=== PATIENT | male | born 1960 | race Caucasian/White ===

== ENCOUNTER 2023-02-22 06:46 | Observation (INO) | payer OTHER, SELFPAY ==
[2023-02-22] VITALS (16 sets, daily range): BP systolic 165–199; BP diastolic 89–106; PULSE 79–101; RESP 10–20; TEMP 36.3–36.9; O2SAT 92–100; BMI 28.9
--- NOTE | ~2023-02-22 | CT_ITS ---
CT ANGIOGRAM NECK AND HEAD History: Right-sided weakness. Technique: Serial spiral axial images through the head and neck were obtained during arterial phase I V injection of 100 cc of Omnipaque 350. 3-D postprocessing and MIP images were then reconstructed on the remote workstation. Dose reduction technique was used on this scan by utilizing automated exposur e control and iterative reconstruction technique. The dose-length product (DLP) was 1298.13 mGy-cm. CTA neck findings: Bilateral vertebral arteries are patent. Left vertebral artery terminates as left PICA, normal variant. Bilateral common carotid, internal carotid, and external carotid arteries are patent. There is calcified plaque at the proximal right internal carotid artery without stenosis. The proximal right internal carotid artery demonstrates 0% stenosis relative to the normal distal artery lumen diameter. The proximal left internal carotid artery demonstrates 0% stenosis relative to the n ormal distal artery lumen diameter. CTA head findings: Basilar artery and posterior cerebral arteries are patent. Distal internal carotid arteries, middle cerebral arteries, and anterior cerebral arteries are patent. No large vessel occlu pete. No stenosis or aneurysm. Impression: No significant abnormality seen. Reviewed, dictated and finalized at location . Impression: No significant abnormality seen.
--- NOTE | ~2023-02-22 | MR_ITS ---
EXAMINATION: MR brain/brain stem wo con DATE: 02/22/2023 16:44 INDICATION: TIA TECHNIQUE: Magnetic resonance imaging (MRI) of the brain and brainstem was performed without intraven ous contrast. Sequences included sagittal and axial T1-weighted SE, axial diffusion-weighted FS EPI A SSET, axial T2*-weighted GRE, axial T2-weighted FLAIR Propeller, and axial T2-weighted Propeller. Pos tcontrast axial and coronal T1-weighted SE was obtained. Apparent diffusion coefficient (ADC) maps we re created. COMPARISON: CT brain and CTA brain carotid 02/22/2023. FINDINGS: No abnormal restricted diffusion to suggest acute ischemic infarct. No MRI evidence of hemorrhage or extra-axial collection. No suspicious foci of susceptibility to suggest prior intraparenchymal hemorr jairo. Moderate, patchy areas of subcortical and periventricular nonspecific white matter hyperintensi ties. Mild generalized parenchymal volume loss. The basilar cisterns are patent. Flow voids are prese rved. Mucosal thickening in the bilateral inferior frontal sinuses, the ethmoid air cells and bilater al maxillary sinuses. Globes and orbital contents are within normal limits. IMPRESSION: 1. No acute infarct. 2. White matter changes may represent chronic microvascular ischemic disease or demyelinating disease , depending on the clinical context. 3. Mucoperiosteal paranasal sinus disease. Reviewed, dictated and finalized at location K. IMPRESSION: 1. No acute infarct. 2. White matter changes may represent chronic microvascular ischemic disease or demyelinating disease, depending on the clinical context. 3. Mucoperiosteal paranasal sinus disease.
--- NOTE | ~2023-02-22 | CT_ITS ---
CT head without contrast Indication: CVA Technique: Serial scans were obtained through the brain without the administration of contrast. Dose reduction technique was used on this scan by utilizing automated exposure control and iterative recon struction technique. The dose-length product (DLP) was 681.00 mGy-cm. Findings: There is no evidence of intracranial hemorrhage, mass lesion, or acute infarct. The ventri cles and subarachnoid spaces are dilated, consistent with minimal atrophy. Low attenuation regions a re seen within the periventricular white matter bilaterally, likely representing changes from chronic microvascular ischemic disease. There is no evidence of edema, mass effect or midline shift. Bilate ral ethmoid sinus disease present. The remaining visualized paranasal sinuses and mastoid air cells a re clear. Impression: No intracranial hemorrhage, mass, or acute infarct. Atrophy and chronic white matter changes, as above. Case discussed with Dr. Mcgovern at 7:00 AM on 02/22/2023. Reviewed, dictated and finalized at [facility]. Impression: No intracranial hemorrhage, mass, or acute infarct. Atrophy and chronic white matter changes, as above. Case discussed with Dr. Mcgovern at 7:00 AM on 02/22/2023.
--- NOTE | ~2023-02-22 | XR_ITS ---
Portable chest x-ray Comparison: None Clinical History: CVA Findings: Lungs are clear, without focal consolidation or pleural effusion. Cardiomediastinal silho uette is unremarkable. Bones and soft tissues are unremarkable. Impression: Normal chest. Reviewed, dictated and finalized at location M. Impression: Normal chest.
--- NOTE | 2023-02-22 06:52 | ECG_ITS ---
Measurements Intervals [place] Rate: 80 P: 66 GA: 142 QRS: 46 QRSD: 88 T: 79 QT: 386 QTc: 446 Interpretive Statements SINUS RHYTHM BORDERLINE ST-T WAVE ABNORMALITY- HIGH LATERAL LEADS BORDERLINE ECG NO PREVIOUS ECG AVAILABLE FOR COMPARISON Electronically Signed On 02-22-2023 8:00:28 CDT by Tereso Molina D.O.
[2023-02-22 07:04] LABS: Glucose Point of Care 105 mg/dl (65-105)
[2023-02-22 07:12] LABS: Basophils Absolute Auto 0.1 K/mm3 (0.0-0.1); Basophils Percent Auto 0.7 % (0.2-1.2); Eosinophils Absolute Auto 0.7 K/mm3 (0-0.3); Eosinophils Percent Auto 10.4 % (0-4.4); Hematocrit 38.3 % (42.0-52.0); Hemoglobin 12.6 g/dL (14.0-18.0); Immature Granulocyte Absolute 0.01 K/mm3 (0.00-0.031); Immature Granulocyte Percent A 0.1 % (0-0.5); Lymphocytes Absolute Auto 0.88 K/mm3 (0.9-3.2); Lymphocytes Percent Auto 13.1 % (18.3-44.2); Mean Corpuscular HGB Conc 32.9 g/dl (32-36); Mean Corpuscular Hemoglobin 32.1 pg (26-34); Mean Corpuscular Volume 97.5 fl (80-100); Mean Platelet Volume 10.7 fl (7.4-10.4); Monocytes Absolute Auto 0.8 K/mm3 (0.1-0.6); Monocytes Percent Auto 12.5 % (2.6-8.5); Neutrophils Absolute Auto 4.3 K/mm3 (1.3-6.7); Neutrophils Percent Auto 63.2 % (45.5-73.1); Platelet Count Result 149 k/mm3 (150-375); Red Blood Count 3.93 M/mm3 (4.6-6.20); Red Cell Distribution Width 13.6 % (11.5-14.5); White Blood Count 6.7 K/mm3 (4.5-10.0)
--- NOTE | 2023-02-22 07:12 | ED.NEUROSD ---
HPI - Neuro Symptoms/Deficit General Chief Complaint: Suspected CVA Stated Complaint: stroke symptoms Time Seen by Provider: 02/22/23 07:00 History of Present Illness HPI Narrative: Patient with history of prior TIA on Plavix presents for right-sided weakness, he states that he went to bed around 930 last night and felt completely fine, and then throughout the night, kept waking up, because he was feeling weird. 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 He has had similar issues in the past which resolved. Has never had TPA before. Related Data Allergies Allergy/AdvReac Type Severity Reaction Status Date / Time No Known Allergies Allergy Verified 02/22/23 07:14 Review of Systems Review of Systems: CONST: No fever. HEENT: Dry throat C/V: No chest pain RESP: No cough GI: Nausea which resolved : No dysuria. M/S: Weakness to right arm and leg SKIN: No rash. NEURO: Headache, vertigo, weakness to right arm/leg PSYCH: [No depression] [facility] Past Medical History Medical History (Updated 02/22/23 @ 09:47 by Shireen Luna MD) TIA (transient ischemic attack) Exam Narrative: EXAMINATION OF ORGAN SYSTEMS/BODY AREAS: Constitutional: Vital signs per nursing GENERAL:[No acute distress, non-toxic appearing.] HEAD: Normal with no signs of head trauma. EYES: EOMI, conjunctiva normal ENT: Slight diminished sensation to the right face LUNGS: Nonlabored breathing. HEART: [Regular rate and rhythm] ABD: [Soft], [nontender to palpation] EXT: Able to lift right arm but some drift compared to left; able to lift right leg but drift compared to left. SKIN: [No rashes or lesions.] NEURO: [Alert and oriented x 3. Ataxia finger to nose on right; diminished sensation R face. Diminished strength right upper/lower extremities.] PSYCH: Normal affect Course Vital Signs Vital signs: Vital Signs Temperature 97.8 F 02/22/23 07:02 Pulse Rate 85 02/22/23 07:02 Respiratory Rate 15 02/22/23 07:02 Blood Pressure 173/106 H 02/22/23 07:02 Pulse Oximetry 100 02/22/23 07:02 Temperature 97.8 F 02/22/23 07:03 Pulse Rate 82 02/22/23 09:17 Respiratory Rate 16 02/22/23 09:17 Blood Pressure 170/105 H 02/22/23 09:17 Pulse Oximetry 98 02/22/23 09:17 Oxygen Delivery Room Air 02/22/23 07:03 MDM - Neuro Symptoms/Deficit MDM Narrative Medical decision making narrative: 62-year-old male with history of TIA presenting with right-sided weakness, last known well before he went to sleep last night, as the symptoms have been present overnight. On exam here he has right upper and lower extremity weakness, some subjective paresthesias and sensation of dry throat, and right-sided ataxia. Discussed case with Dr Cruz, stroke neurologist at [facility] who advised patient not a TPA candidate and also not a candidate for mechanical thrombectomy. Discussed w/ Dr Salmeron who advised full dose ASA and plavix and admit. D/w Dr Garay who accepts pt. Patient updated on plan. Lab Data 02/22/23 07:04 02/22/23 07:04 Labs: Lab Results 02/22/23 02/22/23 Range/Units 07:01 07:04 WBC 6.7 (4.5-10.0) K/mm3 RBC 3.93 L (4.6-6.20) M/mm3 Hgb 12.6 L (14.0-18.0) g/dL Hct 38.3 L (42.0-52.0) % MCV 97.5 (80-100) fl MCH 32.1 (26-34) pg MCHC 32.9 (32-36) g/dl RDW 13.6 (11.5-14.5) % Plt Count 149 L (150-375) k/mm3 MPV 10.7 H (7.4-10.4) fl Immature Gran % (Auto) 0.1 (0-0.5) % Neut % (Auto) 63.2 (45.5-73.1) % Lymph % (Auto) 13.1 L (18.3-44.2) % [place] % (Auto) 12.5 H (2.6-8.5) % Eos % (Auto) 1
[2023-02-22 07:22] LABS: Alanine Aminotransferase 75 U/L (6-50); Albumin Level 3.9 g/dL (3.5-5.1); Alkaline Phosphatase 98 U/L (38-126); Anion Gap 8 mmol/L (8-16); Aspartate Amino Transferase 90 U/L (17-59); Bilirubin,Total 0.8 mg/dL (0.2-1.3); Blood Urea Nitrogen 11 mg/dL (9-20); Calcium 8.2 mg/dL (8.4-10.2); Carbon Dioxide 31 mmol/L (22-30); Chloride 96 mmol/L (98-107); Estimated Glomerular Filt Rate > 60; Glucose 102 mg/dL (65-110); Potassium 3.8 mmol/L (3.4-5.0); Sodium 135 mmol/L (137-145)
[2023-02-22 07:26] LABS: Prothrombin Time 13.5 Seconds (11.1-14.7)
[2023-02-22 07:27] LABS: Partial Thromboplastin Time 31.2 SECONDS (22.3-36.8)
--- NOTE | 2023-02-22 07:29 | PC.NURSE ---
Bedside swallow test done for patient. Patient's only remark was when he turned his head to the right he had trouble drinking water, otherwise swallow test unremarkable.
[2023-02-22 07:33] LABS: Troponin I 0.012 ng/mL (0.000-0.034)
[2023-02-22] MEDS: ASPIRIN 81 MG CHEWABLE TABLET 324 MG PO (09:21)
[2023-02-22] MEDS: CLOPIDOGREL BISULFATE 300 MG TABLET PO (09:22)
--- NOTE | 2023-02-22 10:35 | ADMGEN ---
This patient, Jermaine Chin, was admitted to [facility] Surg Room 327-01. Patient/family oriented to hospital policies and general routines including ID bracelet, bed and alarms, visiting hours, pain management, procedures, bathroom and other care routines, personal items, smoking policy, room service/diet, and visiting hours. Information on how to activate the Rapid Response Team has been discussed. Patient/Family are encouraged to report perceived risks to care and to ask questions if they do not understand what they are told or what they should do.
--- NOTE | 2023-02-22 12:31 | PM.IMHP ---
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 The patient stated when he woke up this morning he felt dizzy then went to work. Patient stated he just did not feel right on the forklift. The patient drove back to the area that they call the parking lot. The patient then attempted to get out of his forklift and slid down to the ground. Patient stated that he was having difficulty getting off the floor. The patient stated that he has had TIAs in the past. The patient had been on aspirin and Plavix however his neurologist at [place] is taking him off the aspirin and just told of any canteen you with the Plavix. His workplace stated that he needed to go to the emergency room. By time the patient came to the emergency room was back to his normal baseline. Neurology was consulted and has already seen the patient. Head CT was read as no intracranial hemorrhage mass or acute infarct. Atrophy and chronic white matter changes as above. Chest x-ray normal chest. Head neck CTA was read as no significant abnormalities. Brain MRI was read as the following.?No acute infarct. 2. White matter changes may represent chronic microvascular ischemic disease or demyelinating disease, depending on the clinical context. 3. Mucoperiosteal paranasal sinus disease. Patient is being admitted to observation status on the date of service of 02/22/2023. Review of Systems Review of Systems: All systems reviewed & are unremarkable except as noted in HPI and below Constitutional: Constitutional: Reports as per HPI and Reports no additional constitutional complaints Eyes: Eyes: Reports as per HPI and Reports no additional eye complaints ENT: Reports system reviewed and no additional complaints, except as documented and Reports Normal hearing present Cardiovascular: Cardiovascular: Reports no additional cardiovascular complaints Respiratory: Respiratory: Reports no additional respiratory complaints and Reports no additional respiratory complaints Gastrointestinal: Gastrointestinal: Reports as per HPI and Reports no additional gastrointestinal complaints Musculoskeletal: Musculoskeletal: Reports no additional musculoskeletal complaints Integumentary/Breasts: Skin/Breast: Reports system reviewed and no additional complaints, except as docu and Reports as per HPI Neurologic: Reports system reviewed and no additional complaints, except as documented, Reports as per HPI and Reports Normal hearing present Psychiatric: Psychiatric: Reports no additional psychiatric complaints and Reports as per HPI Endocrine: Endocrine: Reports no additional endocrine complaints Hematologic/Lymphatic: Hematologic/Lymphatic: Reports no additional hematologic/lymphatic complaints Allergic/Immunologic: Allergic/Immunologic: Reports no additional allergic/immunologic complaints [facility] Past Medical History Medical History (Updated 02/22/23 @ 17:35 by Shantell Costello NP) Anemia Hyperlipidemia Hypertension Osteoarthritis of right knee TIA (transient ischemic attack) Surgical History Surgical History (Updated 02/22/23 @ 17:35 by Shantell Costello NP) H/O hernia repair Previous back surgery Family History Family History Grandparent Cerebrovascular accident Heart disease Hypertension Diabetes mellitus Mother Cerebrovascular accident Heart disease Hypertension Diabetes mellitus Social History Social History (Updated 02/22/23 @ 17:36 by Shantell Costello NP) Social History: The patient has 3 children and works for [employer] at the [employer]. The patient has never smoked. Does not use any alcohol marijuana or illicit drugs. Code status full code Smoking status: Never smoker Alcohol intake: current Substance use: never Lack of Transportation: No Lack
--- NOTE | 2023-02-22 14:26 | WPDNEURCNPN ---
Assessment and Plan Assessment and plan (1) TIA (transient ischemic attack): Code(s): G45.9 - Transient cerebral ischemic attack, unspecified Status: Acute Plan history of right-sided weakness with stroke scale of 0 2. Hypertension 3. Hyperlipidemia number white matter disease basis of microvascular ischemia not significant at this stage 4. negative CTA 5. Continue the treatment as such for the TIA Consult date: 02/23/23 Reason for consult: Suspected cerebrovascular accident HPI: Jermaine Chin is a 62 year old male has been admitted to the hospital through the emergency room through the information that he went to the bed around 9:30 p.m. and was completely fine he woke up as he was feeling weird and then he got up around 3:00 a.m. to go to his work but could not get out of bed as he was feeling weird and dizzy though he was able to get out of bed around 4:00 a.m. 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 He is not allergic to any medication . Initial exam in the emergency room was normal except that his blood pressure was 173/106 also he was complaining of right upper and right lower extremity weakness with paresthesia and sensation of dryness in his throat his case was discussed with the stroke neurologist at [facility] suggested not to give him the tPA and he was admitted here for further evaluation was started on aspirin and Plavix in the ER his CBC was normal except that a platelet count of 149 BMP was only borderline and he was admitted to the hospital with stroke scale of 1, head CTA has been normal without any vascular involvement of thrombosis or aneurysm [facility] Past Medical History Medical History (Updated 02/23/23 @ 09:58 by Elio Guzmán MD) Anemia Hyperlipidemia Hypertension Osteoarthritis of right knee TIA (transient ischemic attack) Surgical History Surgical History (Updated 02/22/23 @ 17:35 by Shantell Costello NP) H/O hernia repair Previous back surgery Family History Family History Grandparent Cerebrovascular accident Heart disease Hypertension Diabetes mellitus Mother Cerebrovascular accident Heart disease Hypertension Diabetes mellitus Social History Social History (Updated 02/22/23 @ 17:36 by Shantell Costello NP) Social History: The patient has 3 children and works for [employer] at the [employer]. The patient has never smoked. Does not use any alcohol marijuana or illicit drugs. Code status full code Smoking status: Never smoker Alcohol intake: current Substance use: never Lack of Transportation: No Lack of Food: Never True Current Housing: I Have Housing Concerned About Future Housing: No Difficulty Paying Gas/Electric Bills: No Difficulty Paying for Meds: No Currently Unemployed: No Education: High School Diploma/GED Difficulty w/ Childcare or Family Care: No Spiritual care concerns: No Meds Home Medications and Allergies Home Medications Medication Instructions Recorded Confirmed Type clopidogrel 75 mg tablet (Plavix) 75 mg PO DAILY 02/22/23 02/22/23 History enalapril maleate 20 mg tablet 20 mg PO BID 02/22/23 02/22/23 History metoprolol tartrate 25 mg tablet 25 mg PO BID 30 days #60 tabs 02/23/23 02/22/23 Rx Allergies Allergy/AdvReac Type Severity Reaction Status Date / Time No Known Allergies Allergy Verified 02/22/23 07:14 Vital Signs Vital Signs - 24 hr 02/22/23 07:02 02/22/23 07:03 02/22/23 07:09 Temperature 36.6 C 36.6 C Pulse Rate 85 82 82 Respiratory Rate 15 15 11 L Blood Pressure 173/106 H 173/106 H 173/106 H Pulse Oximetry 100 100 98 Oxygen Delivery Room Air 02/22/23 07:14 02/22/23 09:17 02/22/23 08:28 Temperature Pulse Rate 92 82 79 R
[2023-02-22] MEDS: ENALAPRIL MALEATE 10 MG TABLET 20 MG PO (18:14)
[2023-02-22] MEDS: hydrALAZINE HCL 20 MG/ML VIAL 10 MG IV PUSH (20:56)
[2023-02-23] VITALS: PULSE 94
--- NOTE | 2023-02-23 | ECHO_ITS ---
Patient Info Name: Jermaine Chin Age: 62 years : 1960 Gender: Male Ht: 69 in Wt: 195 lbs BSA: 2.10 m2 HR: 78 bpm BP: 176 / 89 mmHg Heart Rhythm: Sinus Rhythm Technical Quality: Fair Exam Date: 02/23/2023 9:00 AM Exam Location: [facility] Card Pulmonary Patient Status: Inpatient Admit Date: 02/22/2023 Staff Ordering Physician: Shantell Costello NP Tearoom Host: JESUS Attending Provider: Elio Guzmán MD Exam Type: CA echo doppler color flow Study Info Complete two-dimensional, color flow and Doppler transthoracic echocardiogram is performed. Summary 1. Complete two-dimensional, color flow and Doppler transthoracic echocardiogram is performed. 2. Left ventricular chamber dimension is normal. 3. Left ventricular systolic function is normal, estimated at 60-65%. 4. The left ventricular diastolic function is grade I diastolic dysfunction. 5. E/e' 9 is minimally elevated. Left Ventricle E/e' 9 is minimally elevated. Left ventricular chamber dimension is normal. Left ventricular systolic function is normal, estimated at 60-65%. The left ventricular diastolic function is grade I diastolic dysfunction. Right Ventricle Right ventricular systolic function is normal and with normal TAPSE 1.9 cm. Right ventricular chamber dimension is normal. Left Atria Left atrial chamber dimension is normal. Right Atria Right atrial chamber dimension is normal. Aortic Valve The aortic valve is trileaflet. There is no aortic valve stenosis. There is no aortic valve regurgitation. Pulmonic Valve There is no pulmonic regurgitation. Mitral Valve There is no mitral valve stenosis. There is no mitral valve regurgitation. Tricuspid Valve There is no tricuspid valve regurgitation. Pericardium/Pleural There is no pericardial effusion. Inferior Vena Cava Normal inferior vena cava with >50% collapse upon inspiration consistent with normal right atrial pressure, 5 mmHg. Aorta The aortic root size at the sinus of Valsalva is normal. Tricuspid Valve Name Value Normal Estimated PAP/RSVP RA Pressure 5 mmHg <=5 Report Signatures
[2023-02-23 04:00] VITALS: PULSE 78
[2023-02-23 05:15] VITALS: BP 143/79; PULSE 76; RESP 16; TEMP 36.2; O2SAT 99
[2023-02-23 06:55] LABS: Basophils Absolute Auto 0.1 K/mm3 (0.0-0.1); Eosinophils Absolute Auto 0.8 K/mm3 (0-0.3); Eosinophils Percent Auto 15.2 % (0-4.4); Hematocrit 40.1 % (42.0-52.0); Hemoglobin 12.9 g/dL (14.0-18.0); Immature Granulocyte Absolute 0.01 K/mm3 (0.00-0.031); Immature Granulocyte Percent A 0.2 % (0-0.5); Lymphocytes Absolute Auto 0.54 K/mm3 (0.9-3.2); Lymphocytes Percent Auto 10.5 % (18.3-44.2); Mean Corpuscular HGB Conc 32.2 g/dl (32-36); Mean Corpuscular Hemoglobin 31.2 pg (26-34); Mean Corpuscular Volume 97.1 fl (80-100); Mean Platelet Volume 11.1 fl (7.4-10.4); Monocytes Absolute Auto 0.7 K/mm3 (0.1-0.6); Monocytes Percent Auto 13.7 % (2.6-8.5); Neutrophils Percent Auto 59.4 % (45.5-73.1); Platelet Count Result 149 k/mm3 (150-375); Red Blood Count 4.13 M/mm3 (4.6-6.20); Red Cell Distribution Width 13.6 % (11.5-14.5); White Blood Count 5.1 K/mm3 (4.5-10.0)
[2023-02-23 07:03] LABS: Alanine Aminotransferase 67 U/L (6-50); Albumin Level 3.6 g/dL (3.5-5.1); Alkaline Phosphatase 98 U/L (38-126); Anion Gap 4 mmol/L (8-16); Aspartate Amino Transferase 74 U/L (17-59); Bilirubin,Total 1.3 mg/dL (0.2-1.3); Blood Urea Nitrogen 11 mg/dL (9-20); Calcium 8.3 mg/dL (8.4-10.2); Carbon Dioxide 32 mmol/L (22-30); Chloride 101 mmol/L (98-107); Estimated CRCL calculation 86 ml/min; Estimated Glomerular Filt Rate > 60; Glucose 89 mg/dL (65-110); Magnesium 1.9 mg/dL (1.6-2.3); Potassium 3.8 mmol/L (3.4-5.0); Sodium 137 mmol/L (137-145)
[2023-02-23 07:09] LABS: Lactic Acid Reflex 0.9 mmol/L (0.7-2.0)
[2023-02-23 08:00] VITALS: PULSE 67
[2023-02-23] MEDS: METOPROLOL TARTRATE 25 MG TABLET PO (09:26)
[2023-02-23] MEDS: ENALAPRIL MALEATE 10 MG TABLET 20 MG PO (09:26)
[2023-02-23] MEDS: CLOPIDOGREL BISULFATE 75 MG TABLET PO (09:26)
[2023-02-23] MEDS: amLODIPine BESYLATE 5 MG TABLET PO (09:26)
--- NOTE | 2023-02-23 09:57 | PM.DS ---
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 The patient stated when he woke up this morning he felt dizzy then went to work.? patient then attempted to get out of his forklift and slid down to the ground.? Patient stated that he was having difficulty getting off the floor.? The patient stated that he has had TIAs in the past.? The patient had been on aspirin and Plavix however his neurologist at [place] is taking him off the aspirin and continued with the Plavix.? By time the patient came to the emergency room was back to his normal baseline.? Neurology was consulted and has already seen the patient.? Head CT was read as no intracranial hemorrhage mass or acute infarct.? Atrophy and chronic white matter changes as above.? Chest x-ray normal chest.? Head neck CTA was read as no significant abnormalities.? Brain MRI was read as the following.?No acute infarct. 2. White matter changes may represent chronic microvascular ischemic disease or demyelinating disease, depending on the clinical context. 3. Mucoperiosteal paranasal sinus disease.? Patient was admitted for overnight observation. He is back to his normal baseline status. His symptoms could have been from the sinus disease. Patient is being discharged home Time Spent with Patient Time attestation: Total time spent providing and/or coordinating discharge services: DS: Data Data Completed and Pending Labs on day of discharge: Labs from last 24 hours 02/23/23 06:32 WBC 5.1 RBC 4.13 L Hgb 12.9 L Hct 40.1 L MCV 97.1 MCH 31.2 MCHC 32.2 RDW 13.6 Plt Count 149 L MPV 11.1 H Immature Gran % (Auto) 0.2 Neut % (Auto) 59.4 Lymph % (Auto) 10.5 L [place] % (Auto) 13.7 H Eos % (Auto) 15.2 H Baso % (Auto) 1.0 Lymph # (Auto) 0.54 L [place] # (Auto) 0.7 H Eos # (Auto) 0.8 H Baso # (Auto) 0.1 Abs Immat Gran (auto) 0.01 Absolute Neuts (auto) 3.0 Absolute Nucleated RBC 0.0 Nucleated RBC % 0.0 Sodium 137 Potassium 3.8 Chloride 101 Carbon Dioxide 32 H Anion Gap 4 L BUN 11 Creatinine 0.80 Estim Creat Clear Calc 86 Estimated GFR > 60 Glucose 89 Lactic Acid 0.9 Calcium 8.3 L Magnesium 1.9 Total Bilirubin 1.3 AST 74 H ALT 67 H Alkaline Phosphatase 98 Total Protein 7.0 Albumin 3.6 TSH (Reflex) 3.200 Discharge Plan Discharge Consulting providers: Sandip Salmeron Discharging Clinician: Elio Guzmán Anticipated Discharge Date/Time: 02/23/23 08:12 Patient Disposition: Home, Self-Care Activity: no preference Diet: heart healthy Patient Instructions: Antibiotic Form, Clopidogrel (By mouth), Transient Ischemic Attack (DC) Stand Alone Forms: General Discharge Information Follow-up/Referrals: Spencer,Nathaniel Brito MD [Primary Care Provider] - Discharge Medications: Continued enalapril maleate 20 mg Tablet 20 mg PO BID clopidogrel [Plavix] 75 mg Tablet 75 mg PO DAILY Changed metoprolol tartrate 25 mg Tablet 25 mg PO BID 30 Days Qty: 60 0RF Discontinued amlodipine 5 mg Tablet 5 mg PO DAILY Date of admission: 02/22/23 10:03 Primary Care Provider: SpencerNathaniel Admitting Provider: Td Garay Attending physician on admission: Elio Guzmán Condition: Stable
== END 2023-02-23 09:40 | disposition home or self-care (01) ==
LOC: ANHED 09:47 → ANH3MEDSUR 10:06
PROVIDERS: Nurse Practitioner; Preventive Medicine Aerospace Medicine; Admitting Provider Chiropractor; Emergency Provider Emergency Medicine; PCP Internal Medicine; Visit Provider Hospitalist
DX: G45.9 Transient cerebral ischemic attack, unspecified (principal); R90.82 White matter disease, unspecified; J39.2 Other diseases of pharynx; J32.9 Chronic sinusitis, unspecified; D64.9 Anemia, unspecified; E78.5 Hyperlipidemia, unspecified; I10 Essential (primary) hypertension; M17.11 Unilateral primary osteoarthritis, right knee; R29.704 NIHSS score 4; Z86.73 Personal history of transient ischemic attack (TIA), and cerebral infarction without residual deficits; Z82.3 Family history of stroke; Z82.49 Family history of ischemic heart disease and other diseases of the circulatory system; Z79.02 Long term (current) use of antithrombotics/antiplatelets; Z79.899 Other long term (current) drug therapy
CPT/HCPCS: 36415; 70450; 70496; 70498; 70551; 71045; 80053; 82948; 83605; 83735; 84443; 84484; 85025; 85610; 85730; 93005; 93306; 96374; 99285; A9270; G0378; J0360; Q9967